=== PATIENT | female | born 1950 | race Caucasian/White ===

== ENCOUNTER 2017-02-19 06:48 | Inpatient (IN) | payer MEDICARE, BC ==
[2017-02-18 14:21] LABS: HEMATOCRIT 40.4 % (34.6-47.8); HEMOGLOBIN 13.8 g/dL (11.7-16.4); WHITE BLOOD COUNT 7.4 x10^3/uL (3.4-10)
[2017-02-18 14:31] LABS: ASPARTATE AMINO TRANSFERASE 26 U/L (15-37); BLOOD UREA NITROGEN 14 mg/dL (7-18)
[~2017-02-19] VITALS: Ht 165.1 cm; Wt 98.7 kg
[~2017-02-19 06:48] MED LIST: CELE200C PO; HYDR25TA6 PO; LMFO1TAB PO; LOSA50TA6 PO; METO-99 PO
[2017-02-19] MEDS ORDERED: VANCOMYCIN PER PHARMACY MC STA (07:32)
[2017-02-19] MEDS ORDERED: LACTATED RINGERS 1,000 ML IV SCH (07:37)
[2017-02-19] MEDS ORDERED: FENTANYL PF 100 MCG/2ML ONE (08:06)
[2017-02-19] MEDS ORDERED: MIDAZOLAM 1 MG/ML, 2ML ONE (08:06)
[2017-02-19] MEDS ORDERED: CEFAZOLIN 1,000 MG ONE ×2 (08:06)
[2017-02-19 08:12] VITALS: BP 144/79
[2017-02-19] MEDS ORDERED: PROPOFOL 10 MG/ML, 20ML ONE (08:22)
[2017-02-19] MEDS ORDERED: LIDOCAINE-MPF 2% ,5ML ONE (08:23)
[2017-02-19] MEDS ORDERED: SODIUM CHLORIDE 0.9% 50 ML ONE (08:57)
[2017-02-19] MEDS ORDERED: ROPIvacaine/PF 0.2%, 20 ML ONE (08:57)
[2017-02-19] MEDS ORDERED: EPINEPHRINE 1 MG/ML, 1ML ONE (08:57)
[2017-02-19] MEDS ORDERED: KETOROLAC 60 MG/2 ML ONE (08:57)
[2017-02-19] MEDS ORDERED: TRANEXAMIC ACID 100 MG/ML, 10ML ONE (08:57)
[2017-02-19] MEDS ORDERED: VANCOMYCIN 1,800 MG in SODIUM CHLORIDE 0.9% 250 ML IV ONE (09:00)
[2017-02-19] MEDS ORDERED: PROPOFOL 50 ML ONE ×2 (09:08→10:31)
[2017-02-19] MEDS ORDERED: MEPERIDINE/PF 25MG/0.5ML IVPush PRN (10:00)
[2017-02-19] MEDS ORDERED: FENTANYL PF 100 MCG/2ML IV PRN (10:00)
[2017-02-19] MEDS ORDERED: PROMETHAZINE 25 MG/ML, 1ML IV PRN (10:00)
[2017-02-19] MEDS ORDERED: LABETALOL 5MG/ML, 20ML IV PRN (10:00)
[2017-02-19] MEDS ORDERED: OXYcodone 5 MG/5 ML ORAL.SOL UDC PO PRN (10:00)
[2017-02-19] MEDS ORDERED: ONDANSETRON 2MG/ML, 2ML IVPush PRN (10:00)
[2017-02-19] MEDS ORDERED: hydrALAzine 20 MG/ML, 1ML IV PRN (10:00)
[2017-02-19] MEDS ORDERED: ACETAMINOPHEN 325 MG TABLET PO PRN (10:00)
[2017-02-19] MEDS ORDERED: DEXAMETHASONE 4 MG/ML, 1ML ONE ×2 (10:16)
[2017-02-19] MEDS ORDERED: ONDANSETRON 2MG/ML, 2ML ONE ×3 (10:30→14:15)
[2017-02-19] MEDS ORDERED: VANCOMYCIN 1,000 MG ONE (11:19)
[2017-02-19] MEDS ORDERED: HYDROmorphone 1 MG/ML, 1ML ONE (12:20)
[2017-02-19] MEDS: D5%-0.45% NACL 1,000 ML IV SCH (12:47)
[2017-02-19] MEDS ORDERED: TRANEXAMIC ACID 1,000 MG in SODIUM CHLORIDE 0.9% 100 ML IVPB ONE (12:55)
[2017-02-19] MEDS ORDERED: ZOLPIDEM 5MG TABLET PO PRN (13:00)
[2017-02-19] MEDS ORDERED: ONDANSETRON 4 MG TABLET PO PRN (13:00)
[2017-02-19] MEDS ORDERED: DIPHENHYDRAMINE 25 MG CAPSULE PO PRN (13:00)
[2017-02-19] MEDS ORDERED: SENNA/DOCUSATE TABLET PO PRN (13:00)
[2017-02-19] MEDS ORDERED: ALUMINUM/MAG/SIMETHICONE 30 ML UDC PO PRN (13:00)
[2017-02-19] MEDS: TAMSULOSIN 0.4 MG CAP.ER.24H PO SCH (13:00)
[2017-02-19] MEDS ORDERED: ONDANSETRON 2MG/ML, 2ML IV PRN (13:00)
[2017-02-19] MEDS ORDERED: LORazepam 1MG TABLET PO PRN (13:00)
[2017-02-19] MEDS ORDERED: MAGNESIUM HYDROXIDE 8%, 30ML UDC PO PRN (13:00)
[2017-02-19] MEDS ORDERED: PROMETHAZINE 12.5 MG SUPP PR PRN (13:00)
[2017-02-19] MEDS ORDERED: PROMETHAZINE 25 MG/ML, 1ML IM PRN (13:00)
[2017-02-19] MEDS ORDERED: BISACODYL 10 MG SUPP PR PRN (13:00)
[2017-02-19] MEDS ORDERED: HYDROmorphone 1 MG/ML, 1ML IV PRN (13:00)
[2017-02-19] MEDS ORDERED: ACETAMINOPHEN 650 MG/20.3 ML UDC ONE (13:01)
[2017-02-19] MEDS ORDERED: HYDROmorphone 2 MG/ML, 1ML ONE (13:01)
[2017-02-19] MEDS ORDERED: OXYcodone 5 MG/5 ML ORAL.SOL UDC ONE (13:01)
[2017-02-19] MEDS: HYDROmorphone 1 MG/ML, 1ML IV PRN ×4 (13:05→14:05)
[2017-02-19 15:00] VITALS: BP 151/67
[2017-02-19] MEDS ORDERED: PROMETHAZINE 25 MG/ML, 1ML ONE (15:49)
[2017-02-19] MEDS ORDERED: PHENYLEPHRINE 10 MG/ML ONE (16:00)
[2017-02-19] MEDS ORDERED: KETAMINE 10 MG/ML, 20ML ONE (16:00)
[2017-02-19] MEDS: CEFAZOLIN PMX 2GM/50ML 50 ML IVPB SCH (18:09)
[2017-02-19] MEDS: OXYcodone IR 5MG TABLET PO PRN ×2 (18:09→22:14)
[2017-02-19 19:05] VITALS: BP 140/67
[2017-02-19] MEDS: DOCUSATE 100 MG CAPSULE PO SCH (20:30)
[2017-02-19] MEDS: DIAZEPAM 5 MG TABLET PO PRN (20:30)
[2017-02-19] MEDS: ACETAMINOPHEN 500 MG TABLET PO SCH (20:31)
[2017-02-19] MEDS: METOPROLOL TARTRATE 100 MG TABLET PO SCH (20:31)
[2017-02-20 00:07] VITALS: BP 103/74
[2017-02-20] MEDS: CEFAZOLIN PMX 2GM/50ML 50 ML IVPB SCH (01:30)
[2017-02-20] MEDS: D5%-0.45% NACL 1,000 ML IV SCH ×3 (01:30→20:12)
[2017-02-20] MEDS: DIAZEPAM 5 MG TABLET PO PRN ×3 (02:19→18:39)
[2017-02-20] MEDS: OXYcodone IR 5MG TABLET PO PRN ×3 (02:19→18:39)
[2017-02-20 04:15] VITALS: BP 104/56
[2017-02-20] MEDS: ACETAMINOPHEN 500 MG TABLET PO SCH ×3 (05:35→20:58)
[2017-02-20] MEDS: RIVAROXABAN 10 MG TABLET PO SCH (05:35)
[2017-02-20] MEDS ORDERED: DEXAMETHASONE 4 MG/ML, 1ML IVPush SCH (06:00)
[2017-02-20 06:14] LABS: BLOOD UREA NITROGEN 13 mg/dL (7-18)
[2017-02-20 06:47] VITALS: BP 106/67
[2017-02-20] MEDS: DOCUSATE 100 MG CAPSULE PO SCH ×2 (08:45→20:58)
[2017-02-20] MEDS: TAMSULOSIN 0.4 MG CAP.ER.24H PO SCH (08:45)
[2017-02-20 12:56] VITALS: BP 108/62
[2017-02-20] MEDS: KETOROLAC 30 MG/1 ML IV SCH ×2 (13:28→20:58)
[2017-02-20 18:32] VITALS: BP 127/67
[2017-02-20] MEDS: METOPROLOL TARTRATE 100 MG TABLET PO SCH (20:58)
[2017-02-21 01:06] VITALS: BP 125/74
[2017-02-21] MEDS: OXYcodone IR 5MG TABLET PO PRN ×3 (04:31→12:49)
[2017-02-21] MEDS: DIAZEPAM 5 MG TABLET PO PRN ×3 (04:31→12:49)
[2017-02-21] MEDS: D5%-0.45% NACL 1,000 ML IV SCH (05:18)
[2017-02-21] MEDS: ACETAMINOPHEN 500 MG TABLET PO SCH ×2 (06:01→12:50)
[2017-02-21] MEDS: KETOROLAC 30 MG/1 ML IV SCH (06:01)
[2017-02-21 06:37] VITALS: BP 119/73
[2017-02-21] MEDS: TAMSULOSIN 0.4 MG CAP.ER.24H PO SCH (09:03)
[2017-02-21] MEDS: RIVAROXABAN 10 MG TABLET PO SCH (09:03)
[2017-02-21] MEDS: DOCUSATE 100 MG CAPSULE PO SCH (09:03)
[2017-02-21 12:40] VITALS: BP 132/79
[2017-02-21] MEDS ORDERED: DIAZ5TAB PO (13:00)
[2017-02-21] MEDS ORDERED: OXYC5CAP2 PO (13:00)
== END 2017-02-21 13:36 | disposition home or self-care (01) | DRG 467 ==
LOC: ORIP 06:48 → 4NOR 15:01 → DCLOUNGE 02-21 12:44
PROVIDERS: ADMIT Orthopaedic Surgery; ATTEND Orthopaedic Surgery
PROC: 0SP909Z Removal of Liner from Right Hip Joint, Open Approach (ICD-10-PCS; 2017-02-19)
PROC: 0SUA09Z Supplement Right Hip Joint, Acetabular Surface with Liner, Open Approach (ICD-10-PCS; 2017-02-19)
PROC: 0SP90JZ Removal of Synthetic Substitute from Right Hip Joint, Open Approach (ICD-10-PCS; 2017-02-19)
PROC: 0QU40JZ Supplement Right Acetabulum with Synthetic Substitute, Open Approach (ICD-10-PCS; 2017-02-19)
PROC: 0LQK0ZZ Repair Left Hip Tendon, Open Approach (ICD-10-PCS; 2017-02-19)
PROC: 0SR9039 Replacement of Right Hip Joint with Ceramic Synthetic Substitute, Cemented, Open Approach (ICD-10-PCS; principal; 2017-02-19 09:45)
DX: T84.84XA Pain due to internal orthopedic prosthetic devices, implants and grafts, initial encounter (principal); E44.0 Moderate protein-calorie malnutrition; T84.090A Other mechanical complication of internal right hip prosthesis, initial encounter; J45.909 Unspecified asthma, uncomplicated; M81.0 Age-related osteoporosis without current pathological fracture; M25.851 Other specified joint disorders, right hip; M85.88 Other specified disorders of bone density and structure, other site; M67.853 Other specified disorders of tendon, right hip; M65.88 Other synovitis and tenosynovitis, other site; Y83.8 Other surgical procedures as the cause of abnormal reaction of the patient, or of later complication, without mention of misadventure at the time of the procedure; Z82.49 Family history of ischemic heart disease and other diseases of the circulatory system; Y92.89 Other specified places as the place of occurrence of the external cause; Z88.6 Allergy status to analgesic agent; Z88.8 Allergy status to other drugs, medicaments and biological substances
CPT/HCPCS: 36415; 72170; 80048; 80053; 81001; 82040; 85018; 85025; 86850; 86900; 87081; 87086; 93005; C1713; J0171; J0690; J1100; J1170; J1885; J2250; J2405; J2550; J2704; J2795; J3010; J3370; J3490; C1776; J2370; J7050; J7120